=== PATIENT | male | born 1945 | race Two or more races ===

== ENCOUNTER 2016-10-20 07:07 | Day surgery (SDC) | payer OTHER ==
[2016-10-20] VITALS (11 sets, daily range): BP systolic 125–169; BP diastolic 57–81
[~2016-10-20] VITALS: Ht 154.9 cm; Wt 79.8 kg
[~2016-10-20 07:07] MED LIST: BENAZEPRIL HCL10 MG ORAL; Bupivacaine w/Epi 0.25% 30ml Vial INJ ONE; EPINEPHrine 1mg/1ml Amp ONE; OMEPRAZOLE20 M2 ORAL; Ropivacaine 5mg/ml Vial 20ml INJ ONE; ceFAZolin 1gm in D5W 55ml IVP ONE; celeBREX 200mg Cap **SURGERY PATIENTS ONLY ORAL ONE; oxyCONTIN 20mg tab ORAL ONE
[2016-10-20] MEDS ORDERED: Lidocaine 1% MPF 10mg/ml 5ml ONE (07:08)
[2016-10-20] MEDS ORDERED: NS Irrig 4000ml IRRIG ONE (07:08)
[2016-10-20] MEDS ORDERED: Alfentanil 2ml Inj ONE (07:08)
[2016-10-20] MEDS ORDERED: Midazolam 2mg/2ml Inj ONE (07:08)
[2016-10-20] MEDS ORDERED: Propofol 10mg/ml 20ml IV ONE (07:08)
--- NOTE | 2016-10-20 07:14 | Pre-Procedure Note/Attestation ---
Pre-Procedure Note/Attestation Complete Prior to Procedure Planned Procedure: left Procedure Narrative: shoulder rct repair, sad Indications for Procedure Pre-Operative Diagnosis: left shoulder rct, impingment Attestation I attest that I discussed the nature of the procedure; its benefits; risks and complications; and alternatives (and the risks and benefits of such alternatives ), prior to the procedure, with the patient (or the patient's legal renewals representative). I attest that, if there was a reasonable possibility of needing a blood transfusion, the patient (or the patient's legal renewals representative) was given the [facility] standardized written summary, pursuant to the [place] Blood Safety Act ([place] Health and Safety Code # 1645, as amended). I attest that I re-evaluated the patient just prior to the surgery and that there has been no change in the patient's H&P, except as documented below: WINNIE CLARK Oct 20, 2016 07:14
--- NOTE | 2016-10-20 07:15 | Operative Note - PDOC ---
Operative Note Operative Note Pre-op Diagnosis: left shoulder rct, impingment Procedure: see op report Post-op Diagnosis: same as pre-op plus Operative Findings: consistent w/pre-op dx studies Anesthesia: MAC Specimen: none Complications: none Condition: stable Estimated Blood Loss: none Implant(s) used?: Yes WINNIE CLARK Oct 20, 2016 07:15
--- NOTE | 2016-10-20 10:34 | Anethesia Preoperative Eval ---
Anesthesia Pre-op PMH/ROS General Date of Evaluation: Oct 20, 2016 Time of Evaluation: 10:11 Anesthesiologist: Ben ASA Score: ASA 3 Mallampati Score Class I : Soft palate, uvula, fauces, pillars visible Class II: Soft palate, uvula, fauces visible Class III: Soft palate, base of uvula visible Class IV: Only hard plate visible Mallampati Classification: Class II Surgeon: Diogenes Diagnosis: L Shoulder Pain Surgical Procedure: L Shoulder Arthroscopy Family History: no anesthesia problems Allergies: Coded Allergies: No Known Allergies (Unverified , 10/19/16) Medications: see eMAR Past Medical History Cardiovascular: Reports: HTN Pulmonary: Reports: other - Bronchitis Gastrointestinal/Genitourinary: Reports: GERD Other: obesity - BMI 33 Anesthesia Pre-op Phys. Exam Physician Exam Last Vital Signs Date Time Temp Pulse Resp B/P Pulse Ox O2 Delivery O2 Flow Rate FiO2 10/20/16 08:49 97.4 68 18 133/81 98 Room Air Constitutional: NAD Neurologic: CN 2-12 intact Cardiovascular: RRR Respiratory: CTA Gastrointestinal: S/NT/ND Airway Exam Mallampati Score: Class II MO: full ROM: limited Teeth: missing, intact Anesthesia Pre-op A/P Risk Assessment & Plan Assessment: ASA 3 Plan: GA, BIS, L Supraclavicular Block Status Change Before Surgery: No Pre-Antibiotics Dru Gram Ancef IV Given Within 1 Hr of Incision: Yes Time Given: 10:46 Raphael Contreras MD Oct 20, 2016 10:34
[2016-10-20] MEDS ORDERED: LR 1000ml 1,000 ML IVLG SCH (11:21)
--- NOTE | 2016-10-20 11:23 | Immediate Post-Op Evaluation ---
Immediate Post-Op Evalulation Immediate Post-Op Evalulation Procedure: L Shoulder Arthroscopy Date of Evaluation: Oct 20, 2016 Time of Evaluation: 12:19 IV Fluids: 200 LR Blood Products: 0 Estimated Blood Loss: 20 Urinary Output: 0 Blood Pressure Systolic: 164 Blood Pressure Diastolic: 79 Pulse Rate: 69 Respiratory Rate: 18 O2 Sat by Pulse Oximetry: 100 Temperature (Fahrenheit): 97.1 Pain Score (1-10): 1 Nausea: No Vomiting: No Complications 0 Patient Status: awake, reacts, patent, extubated, none Hydration Status: adequate Dru Gram Ancef IV Given Within 1 Hr of Incision: Yes Time Given: 10:46 Raphael Contreras MD Oct 20, 2016 11:23
--- NOTE | 2016-10-20 11:24 | 48 Hour Post Anesthesia Eval ---
Post Anesthesia Evaluation Procedure: L Shoulder Arthroscopy Date of Evaluation: Oct 20, 2016 Time of Evaluation: 14:24 Blood Pressure Systolic: 167 0: 72 Pulse Rate: 67 Respiratory Rate: 18 Temperature (Fahrenheit): 98.2 O2 Sat by Pulse Oximetry: 100 Airway: patent Nausea: No Vomiting: No Pain Intensity: 1 Hydration Status: adequate Cardiopulmonary Status: Stable Mental Status/LOC: patient returned to baseline Follow-up Care/Observations: 0 Post-Anesthesia Complications: 0 Follow-up care needed: ready to discharge Raphael Contreras MD Oct 20, 2016 11:23
[2016-10-20] MEDS ORDERED: Ketorolac 30mg Inj IV PRN (11:30)
[2016-10-20] MEDS ORDERED: DiphenhydrAMINE 50mg/ml Inj IVP PRN (11:30)
[2016-10-20] MEDS ORDERED: Hydromorphone 0.5mg/0.5ml inj IVP PRN (11:30)
[2016-10-20] MEDS ORDERED: Norco 5mg/325mg tab ORAL PRN ×2 (11:30→17:01)
[2016-10-20] MEDS ORDERED: LORazepam Inj 2mg/ml 1ml IV PRN (11:30)
[2016-10-20] MEDS ORDERED: Ketorolac 60mg Inj IV PRN (11:30)
[2016-10-20] MEDS ORDERED: Metoclopramide 10mg/2ml Inj IVP PRN (11:30)
[2016-10-20] MEDS ORDERED: Norco 7.5mg/325mg tab ORAL PRN (11:30)
[2016-10-20] MEDS ORDERED: fentaNYL 100 mcg/2 mL IV PRN (11:30)
[2016-10-20] MEDS ORDERED: Meperidine 25mg/0.5ml Inj IV PRN (11:30)
[2016-10-20] MEDS ORDERED: Atropine Inj 1mg/10ml Syr IV PRN (11:30)
[2016-10-20] MEDS ORDERED: Oxycodone/Acetaminophen 5-325 ORAL PRN (11:30)
[2016-10-20] MEDS ORDERED: Midazolam 2mg/2ml Inj IVP PRN (11:30)
[2016-10-20] MEDS ORDERED: HYDROmorphone 1mg/ml Carpuject SUBQ PRN (17:01)
[2016-10-20] MEDS ORDERED: D5 1/2NS 1,000 ML IV SCH (17:01)
[2016-10-20] MEDS ORDERED: Tylenol #3 tab (300mg/30mg) ORAL PRN (17:01)
--- NOTE | 2016-10-20 21:00 | Operative Note - Dictated ---
DATE OF OPERATION: 10/20/2016 PREOPERATIVE DIAGNOSES: 1. Left shoulder high-grade versus full-thickness rotator cuff tear. 2. Impingement syndrome. POSTOPERATIVE DIAGNOSES: 1. Left shoulder high-grade versus full-thickness rotator cuff tear. 2. Impingement syndrome. PROCEDURES: 1. Left shoulder arthroscopy and extensive debridement. 2. Left shoulder arthroscopic rotator cuff repair. 3. Left shoulder subacromial decompression bursectomy. SURGEON: Rufus Shetty M.D. ANESTHESIA: Interscalene with general. INDICATION FOR PROCEDURE: The patient is a pleasant gentleman, who has had progressive left shoulder pain. He had an MRI which showed area of concern for high-grade versus full-thickness rotator cuff tear. Given continued issues particularly with activity, he elected to undergo a left shoulder arthroscopy with rotator cuff repair. The risks, limitations, expectations, and complications of procedure were discussed in detail. All questions were addressed. DESCRIPTION OF PROCEDURE: After informed consent was obtained. The patient was brought to the operative room and placed under general anesthesia. Interscalene block was placed. The patient was then carefully placed in a beach-chair position. Left shoulder was prepped and draped in a sterile manner. Time-out was performed. Posterolateral stab incision was then made. Trocar was introduced into the glenohumeral joint. Systematic to the shoulder. Everything looked good. There was no significant labral tear. There was no chondral damage, subsequent tendon appeared to be intact. The superior labrum was intact. The rotator cuff appeared intact. At this point, the camera was placed in the subacromial space. Significant amount of hypertrophic bursal tissue was debrided to better visualize the under surface of the acromion. The undersurface of the bone spur. Acromioplasty was started from mediolateral completed posterior to anterior. At this point, complete bursectomy of the posterior aspect of the shoulder was performed. Once this was done, the rotator cuff and bursal side was viewed and there was an area where there was significant frying and thinning anteriorly. Spinal needle was then placed in this area of concern. The camera was then repositioned in the joint and it seemed like there was thin film of scar tissue that was there that in the area where the patient had a concern for a full-thickness or high-grade almost full-thickness rotator cuff tear. At this point, a anchor was placed just lateral to the articular margin. Two mattress sutures were then placed to further synch down the rotator cuff along the articular margin. Once this was done, the camera was placed in the subacromial space and the shoulder was moved in the rotator cuff and moved as a unit. At this point, the camera was removed. Portal sites were closed using 3-0 Monocryl sutures. Steri-Strips and a sterile dressing were applied. The patient was awoken and taken to recovery room with stable vital signs. ESTIMATED BLOOD LOSS: Minimal. COMPLICATIONS: None. SPECIMENS: None. IMPLANTS: [employer]ug[employer] anchor Rufus Shetty M.D. DR: Clover JOB#: [id number] CC:
== END 2016-10-20 14:00 | disposition home or self-care (01) ==
LOC: SUR 07:07
DX: M75.102 Unspecified rotator cuff tear or rupture of left shoulder, not specified as traumatic (principal); M75.42 Impingement syndrome of left shoulder; R20.0 Anesthesia of skin; I10 Essential (primary) hypertension; E66.9 Obesity, unspecified; Z68.33 Body mass index [BMI] 33.0-33.9, adult; K21.9 Gastro-esophageal reflux disease without esophagitis; Z87.891 Personal history of nicotine dependence; Z90.49 Acquired absence of other specified parts of digestive tract
CPT/HCPCS: 29826; 29827; J0171; J0690; J2250; J2704; J2795; J3490; 94003; 94150; C1713

== ENCOUNTER 2017-04-27 07:12 | Day surgery (SDC) | payer OTHER ==
[~2017-04-27] VITALS: Ht 154.9 cm; Wt 78.5 kg
[2017-04-27] VITALS (14 sets, daily range): BP systolic 107–144; BP diastolic 62–78
[~2017-04-27 07:12] MED LIST changes: -Bupivacaine w/Epi 0.25% 30ml Vial INJ ONE; -EPINEPHrine 1mg/1ml Amp ONE; -Ropivacaine 5mg/ml Vial 20ml INJ ONE
--- NOTE | 2017-04-27 07:27 | Pre-Procedure Note/Attestation ---
Pre-Procedure Note/Attestation Complete Prior to Procedure Planned Procedure: right Procedure Narrative: knee arthroscopy medial menisectomy Indications for Procedure Pre-Operative Diagnosis: right knee medial menisecus tear Attestation I attest that I discussed the nature of the procedure; its benefits; risks and complications; and alternatives (and the risks and benefits of such alternatives ), prior to the procedure, with the patient (or the patient's legal sales and marketing representative). I attest that, if there was a reasonable possibility of needing a blood transfusion, the patient (or the patient's legal sales and marketing representative) was given the [facility] standardized written summary, pursuant to the [place] Blood Safety Act ([place] Health and Safety Code # 1645, as amended). I attest that I re-evaluated the patient just prior to the surgery and that there has been no change in the patient's H&P, except as documented below: WINNIE CLARK Apr 27, 2017 07:27
--- NOTE | 2017-04-27 07:27 | Operative Note - PDOC ---
Operative Note Operative Note Pre-op Diagnosis: right knee medial menisecus tear Procedure: right knee arthroscopy, medial menisectomy Post-op Diagnosis: same as pre-op plus Operative Findings: consistent w/pre-op dx studies Anesthesia: MAC Specimen: none Complications: none Condition: stable Estimated Blood Loss: none Implant(s) used?: No WINNIE CLARK Apr 27, 2017 07:27
[2017-04-27] MEDS ORDERED: Norco 5mg/325mg tab ORAL PRN (07:30)
[2017-04-27] MEDS ORDERED: HYDROmorphone 1mg/ml Carpuject SUBQ PRN (07:30)
[2017-04-27] MEDS ORDERED: D5 1/2NS 1,000 ML IV SCH (07:30)
[2017-04-27] MEDS ORDERED: Tylenol #3 tab (300mg/30mg) ORAL PRN (07:30)
[2017-04-27] MEDS ORDERED: Morphine Sulfate PF 10 ML ONE (09:52)
[2017-04-27] MEDS ORDERED: Kenalog-40 1ml Vial ONE (09:52)
[2017-04-27] MEDS ORDERED: Propofol 200mg/20ml IV ONE (09:52)
[2017-04-27] MEDS ORDERED: Ketorolac 30mg Inj ONE ×2 (09:52→10:30)
[2017-04-27] MEDS ORDERED: Bupivacaine 0.25% Inj 30ml INJ ONE (09:53)
[2017-04-27] MEDS ORDERED: Duramorph PF 10mg/10ml amp IV ONE (10:20)
[2017-04-27] MEDS ORDERED: fentaNYL 100 mcg/2 mL IV ONE (10:30)
[2017-04-27] MEDS ORDERED: LR 1000ml ONE (10:30)
[2017-04-27] MEDS ORDERED: Midazolam 2mg/2ml Inj ONE (10:30)
[2017-04-27] MEDS ORDERED: NS Irrig 4000ml IRRIG ONE (10:30)
[2017-04-27] MEDS ORDERED: Lidocaine 1% 10mg/ml/Epi 0.005mg/ml 30ml vial INJ ONE (10:57)
--- NOTE | 2017-04-27 11:19 | Anethesia Preoperative Eval ---
Anesthesia Pre-op PMH/ROS General Date of Evaluation: Apr 27, 2017 Time of Evaluation: 10:25 Anesthesiologist: Pedro ASA Score: ASA 2 Mallampati Score Class I : Soft palate, uvula, fauces, pillars visible Class II: Soft palate, uvula, fauces visible Class III: Soft palate, base of uvula visible Class IV: Only hard plate visible Mallampati Classification: Class II Surgeon: Diogenes Diagnosis: R knee pain Surgical Procedure: R knee scope Anesthesia History: none Social History: smoking - h/o Family History: no anesthesia problems Allergies: Coded Allergies: No Known Allergies (Unverified , 10/19/16) Medications: see eMAR Past Medical History Cardiovascular: Reports: HTN, Denies: CAD, [place], valve dz, arrhythmia, other Pulmonary: Denies: asthma, COPD, KIM, other Gastrointestinal/Genitourinary: Reports: GERD, Denies: CRI, ESRD, other Neurologic/Psychiatric: Denies: dementia, CVA, depression/anxiety, TIA, other Endocrine: Denies: DM, hypothyroidism, steroids, other HEENT: Denies: cataract (L), cataract (R), glaucoma, [place] (L), [place] (R), other Hematology/Immune: Denies: anemia, DVT, bleeding disorder, other Musculoskeletal/Integumentary: Reports: DJD, Denies: OA, RA, DDD, edema, other PMH Narrative: as above PSxH Narrative: Shoulder, appendectomy orchidectomy Anesthesia Pre-op Phys. Exam Physician Exam Last Vital Signs Date Time Temp Pulse Resp B/P (MAP) Pulse Ox O2 Delivery O2 Flow Rate FiO2 04/27/17 08:06 97.3 72 18 113/71 98 Room Air Constitutional: NAD Neurologic: CN 2-12 intact Cardiovascular: RRR, no M/R/G Respiratory: CTA Gastrointestinal: S/NT/ND Airway Exam Mallampati Score: Class II MO: limited Neck: stiff Teeth: missing, broken Dentures: no upper, no lower Anesthesia Pre-op A/P Labs see chart Studies Pre-op Studies: EKG - NSR Risk Assessment & Plan Assessment: ASA 2 Plan: GA with LMA Status Change Before Surgery: No Pre-Antibiotics Drug: Ancef 1gr. Given Within 1 Hr of Incision: Yes Time Given: 10:56 EDDIE MCKINNON M.D. Apr 27, 2017 11:19
[2017-04-27] MEDS ORDERED: LR 1000ml 1,000 ML IVLG SCH (11:20)
[2017-04-27] MEDS ORDERED: DiphenhydrAMINE 50mg/ml Inj IVP PRN (11:30)
[2017-04-27] MEDS ORDERED: Hydromorphone 0.5mg/0.5ml inj IVP PRN (11:30)
--- NOTE | 2017-04-27 12:30 | Immediate Post-Op Evaluation ---
Immediate Post-Op Evalulation Immediate Post-Op Evalulation Procedure: R knee arthroscopy meniscectomy Date of Evaluation: Apr 27, 2017 Time of Evaluation: 11:40 IV Fluids: 300 Blood Products: none Estimated Blood Loss: min Urinary Output: none Blood Pressure Systolic: 125 Blood Pressure Diastolic: 76 Pulse Rate: 64 Respiratory Rate: 20 O2 Sat by Pulse Oximetry: 99 Temperature (Fahrenheit): 97.4 Pain Score (1-10): 2 Nausea: No Vomiting: No Complications none Patient Status: reacts, patent, none Hydration Status: adequate EDDIE MCKINNON M.D. Apr 27, 2017 12:29
--- NOTE | 2017-04-27 14:04 | 48 Hour Post Anesthesia Eval ---
Post Anesthesia Evaluation Procedure: R knee arthroscopy meniscectomy Date of Evaluation: Apr 27, 2017 Time of Evaluation: 14:03 Blood Pressure Systolic: 128 0: 72 Pulse Rate: 68 Respiratory Rate: 20 Temperature (Fahrenheit): 97.6 O2 Sat by Pulse Oximetry: 98 Airway: patent Nausea: No Vomiting: No Pain Intensity: 2 Hydration Status: adequate Cardiopulmonary Status: stable Mental Status/LOC: patient returned to baseline Follow-up Care/Observations: n/a Post-Anesthesia Complications: none Follow-up care needed: ready to discharge EDDIE MCKINNON M.D. Apr 27, 2017 14:04
--- NOTE | 2017-04-27 17:30 | Operative Note - Dictated ---
DATE OF OPERATION: 04/27/2017 PREOPERATIVE DIAGNOSIS: Right knee medial meniscus tear. POSTOPERATIVE DIAGNOSES: 1. Right knee posterior horn medial meniscus tear. 2. Grade 2 chondral damage, medial patellar facet. SURGEON: Rufus Shetty M.D. ANESTHESIA: General. INDICATION FOR SURGERY: The patient is a pleasant gentleman who has had significant right knee pain. He had MRI, which showed a medial meniscus tear. He was indicated for operative fixation with partial medial meniscectomy. Risks, limitations, expectations and complication of the procedure were discussed in detail. All questions addressed. DESCRIPTION OF PROCEDURE: An informed consent was obtained. The patient was brought into the operating room and placed supine under general monitored anesthesia control. Tourniquet was applied to the right proximal thigh. Right leg was prepped and draped in a sterile manner. A 0.25% Marcaine was injected into the right knee. Portal sites were injected with 1% lidocaine with epinephrine. Inferolateral stab incision was then made. Trocar was introduced into the knee joint. There was hypertrophic synovial tissue in the patellofemoral compartment. Medial gutter was entered and had a tear of the posterior horn medial meniscus. A medial working portal was established. Partial meniscectomy in combination with bitters and lorenzo was performed. Synovectomy was carried into the intercondylar notch and lateral compartment. ACL was probed and noted to be intact. Lateral compartment was entered, free of any meniscal chondral damage. The camera was repositioned in the patellofemoral compartment. Synovectomy was performed. Once that was done, of note there was grade 3 chondral damage of the trochlea groove. A gentle chondroplasty was performed. At this point, instruments were removed. Portal sites were closed with 3-0 Monocryl suture. Steri-Strips and a sterile dressing were applied. The patient was awoken and taken to recovery room with stable vital signs. ESTIMATED BLOOD LOSS: Minimal. COMPLICATIONS: None. SPECIMENS: None. IMPLANTS: None. Rufus Shetty M.D. DR: LETY JOB#: [id number] CC:
== END 2017-04-27 14:20 | disposition home or self-care (01) ==
LOC: SUR 07:12
DX: S83.241A Other tear of medial meniscus, current injury, right knee, initial encounter (principal); Z90.89 Acquired absence of other organs; I10 Essential (primary) hypertension; Z87.891 Personal history of nicotine dependence; K21.9 Gastro-esophageal reflux disease without esophagitis; M19.90 Unspecified osteoarthritis, unspecified site; X58.XXXA Exposure to other specified factors, initial encounter; Y93.9 Activity, unspecified; Y92.9 Unspecified place or not applicable
CPT/HCPCS: 29876; 29881; 97161; G8978; G8979; G8980; J0690; J1885; J2250; J2274; J2704; J3010; J3301; J3490; J7120; 94003; 94150